=== PATIENT | female | born 1965 | race Caucasian/White ===

== ENCOUNTER 2019-08-19 09:24 | Outpatient (CLI) | payer OTHER ==
--- NOTE | 2019-08-19 10:25 | ULT ---
THYROID ULTRASOUND: HISTORY: Thyroid nodule. Previous right thyroid lobectomy. COMPARISON: 01/11/2011 at [facility]. FINDINGS: Thyroid isthmus measures 0.3 cm. Left thyroid lobe measures 1.4 x 1.6 x 4.5 cm. Right thyroid lobe is surgically absent. Thyroid nodules: Left upper lobe: 1.7 x 0.9 x 0.9 cm solid hypoechoic nodule in the upper pole of the right thyroid lo be. Previously, this nodule was reported to be 1.7 cm in maximum dimension. There is a complex 2.2 x 1.2 x 1.4 cm solid nodule in the lower pole left thyroid lobe. Previously nodule was reportedly to be 1.6 cm. Thyroid isthmus: Complex nodule in the isthmus measures 1.1 x 0.9 x 1.2 cm. Solid nodule measures 0. 8 x 1.1 x 1.0. IMPRESSION: Redemonstration of solid nodules throughout the thyroid gland. The inferior most nodule in the left t hyroid lobe has increased in size since the previous examination. TIRADS level 4 moderately suspicious. RECOMMENDATION: Ultrasound-guided fine-needle aspiration. Stable solid nodule in the upper pole of the left thyroid l obe with no significant change in maximum dimension. Transcribed Date/Time: 08/19/2019 10:31 AM
== END 2019-08-19 09:25 | disposition home or self-care (01) ==
LOC: SCSULT 09:24
PROVIDERS: ATTEND Family Medicine Sports Medicine
DX: E04.2 Nontoxic multinodular goiter (principal)
CPT/HCPCS: 76536